=== PATIENT | female | born 1960 | race Asian ===

== ENCOUNTER 2019-01-08 17:10 | Inpatient (IN) | payer OTHER ==
[~2019-01-08] VITALS: Ht 147.3 cm; Wt 51.3 kg
[2019-01-08 17:29] VITALS: Ht 147.3 cm; Wt 51.3 kg
[2019-01-08 19:18] LABS: BASOPHIL % 1.4 % (0-2); PLATELET COUNT 352 x10^3mcL (130-400)
[2019-01-08 19:26] LABS: RED CELL DISTRIBUTION WIDTH 15.2 % (11.5-14.5)
[2019-01-08 19:28] LABS: ALBUMIN 3.9 g/dL (3.4-5.0); ALKALINE PHOSPHATASE 110 U/L (46-116); ALT/SGPT 198 U/L (14-59); AST/SGOT 65 U/L (15-37); BILIRUBIN TOTAL 0.9 mg/dL (0.20-1.00); CALCIUM 8.7 mg/dL (8.5-10.1); CHLORIDE SERUM 82 mmol/L (98-107); CREATININE SERUM 0.9 mg/dL (0.6-1.0); GFR1 > 60 mL/min; GLUCOSE SERUM 202 mg/dL (74-106); POTASSIUM SERUM 3.1 mmol/L (3.5-5.1); TOTAL PROTEIN, SERUM 8.2 g/dL (6.4-8.2)
[2019-01-08 19:31] LABS: SODIUM SERUM 118 mmol/L (136-145)
[2019-01-08 19:32] LABS: FREE T4 1.46 ng/dL (0.76-1.46)
[2019-01-08 19:35] LABS: T4(THYROXINE) 15.7 ug/dL (4.7-13.3)
[2019-01-08 19:46] LABS: T3 TOTAL 1.13 ng/mL
[2019-01-08 19:47] LABS: rbc morphology (normal/abnorm) ABNORMAL (NORMAL)
[2019-01-08 21:28] LABS: CALCIUM 8.5 mg/dL (8.5-10.1); CARBON DIOXIDE 30.9 mmol/L (21-32); CHLORIDE SERUM 84 mmol/L (98-107); CREATININE SERUM 0.8 mg/dL (0.6-1.0); GFR1 > 60 mL/min; GLUCOSE SERUM 138 mg/dL (74-106); POTASSIUM SERUM 3.1 mmol/L (3.5-5.1)
[2019-01-08 21:33] LABS: SODIUM SERUM 120 mmol/L (136-145)
[2019-01-08 23:40] VITALS: BP 160/93
[2019-01-09 01:13] LABS: CALCIUM 7.8 mg/dL (8.5-10.1); CARBON DIOXIDE 30.9 mmol/L (21-32); CHLORIDE SERUM 88 mmol/L (98-107); CREATININE SERUM 0.7 mg/dL (0.6-1.0); GFR1 > 60 mL/min; GLUCOSE SERUM 106 mg/dL (74-106); POTASSIUM SERUM 3.7 mmol/L (3.5-5.1)
[2019-01-09 01:43] LABS: SODIUM SERUM 122 mmol/L (136-145)
[2019-01-09] MEDS ORDERED: COZAAR50 M1 PO (04:20)
[2019-01-09] MEDS ORDERED: HYDROCHLOROTH12.5 M2 PO (04:20)
[2019-01-09 04:32] VITALS: BP 104/88
[2019-01-09 07:16] LABS: BASOPHIL % 0.1 % (0-2); PLATELET COUNT 360 x10^3mcL (130-400)
[2019-01-09 07:45] LABS: RED CELL DISTRIBUTION WIDTH 14.9 % (11.5-14.5); rbc morphology (normal/abnorm) ABNORMAL (NORMAL)
[2019-01-09 08:27] VITALS: BP 145/86
[2019-01-09 10:59] LABS: CARBON DIOXIDE 27.5 mmol/L (21-32); CHLORIDE SERUM 92 mmol/L (98-107); CREATININE SERUM 0.7 mg/dL (0.6-1.0); GFR1 > 60 mL/min; GLUCOSE SERUM 111 mg/dL (74-106); MAGNESIUM 1.9 mg/dL (1.8-2.4); PHOSPHOROUS 2.8 mg/dL (2.5-4.9); POTASSIUM SERUM 4.2 mmol/L (3.5-5.1); SODIUM SERUM 125 mmol/L (136-145)
[2019-01-09 12:10] VITALS: BP 144/86
[2019-01-09 16:17] VITALS: BP 150/93
[2019-01-09 21:34] VITALS: BP 155/90
[2019-01-09] MEDS ORDERED: ZOLOFT50 MG (21:37)
[2019-01-10 05:28] VITALS: BP 154/85
[2019-01-10 07:01] LABS: BASOPHIL % 0.2 % (0-2); PLATELET COUNT 316 x10^3mcL (130-400)
[2019-01-10 07:16] LABS: CALCIUM 7.9 mg/dL (8.5-10.1); CARBON DIOXIDE 25.1 mmol/L (21-32); CHLORIDE SERUM 92 mmol/L (98-107); CREATININE SERUM 0.5 mg/dL (0.6-1.0); GFR1 > 60 mL/min; GLUCOSE SERUM 113 mg/dL (74-106); MAGNESIUM 2.1 mg/dL (1.8-2.4); PHOSPHOROUS 2.3 mg/dL (2.5-4.9); POTASSIUM SERUM 3.6 mmol/L (3.5-5.1); RED CELL DISTRIBUTION WIDTH 15.4 % (11.5-14.5); SODIUM SERUM 125 mmol/L (136-145)
[2019-01-10 07:17] LABS: rbc morphology (normal/abnorm) ABNORMAL (NORMAL)
[2019-01-10 08:48] VITALS: BP 165/91
[2019-01-10 08:55] VITALS: BP 153/80
[2019-01-10 12:28] VITALS: BP 155/89
[2019-01-10 13:08] LABS: CALCIUM 7.8 mg/dL (8.5-10.1); CARBON DIOXIDE 26.7 mmol/L (21-32); CHLORIDE SERUM 93 mmol/L (98-107); CREATININE SERUM 0.6 mg/dL (0.6-1.0); GFR1 > 60 mL/min; GLUCOSE SERUM 104 mg/dL (74-106); POTASSIUM SERUM 4.3 mmol/L (3.5-5.1); SODIUM SERUM 128 mmol/L (136-145)
[2019-01-10 20:45] VITALS: BP 155/94
[2019-01-11 05:35] VITALS: BP 136/84
[2019-01-11 07:24] LABS: BASOPHIL % 0.8 % (0-2); PLATELET COUNT 364 x10^3mcL (130-400)
[2019-01-11 07:43] LABS: RED CELL DISTRIBUTION WIDTH 15.8 % (11.5-14.5)
[2019-01-11 07:45] LABS: CALCIUM 8.1 mg/dL (8.5-10.1); CARBON DIOXIDE 27.4 mmol/L (21-32); CHLORIDE SERUM 96 mmol/L (98-107); CREATININE SERUM 0.7 mg/dL (0.6-1.0); GFR1 > 60 mL/min; GLUCOSE SERUM 86 mg/dL (74-106); PHOSPHOROUS 2.2 mg/dL (2.5-4.9); POTASSIUM SERUM 4.3 mmol/L (3.5-5.1); SODIUM SERUM 133 mmol/L (136-145); rbc morphology (normal/abnorm) ABNORMAL (NORMAL)
[2019-01-11 09:08] VITALS: BP 136/94
[2019-01-11] MEDS ORDERED: NOR5 PO (10:18)
[2019-01-11 12:11] VITALS: BP 141/86
[2019-01-11 16:29] VITALS: BP 164/97
[2019-01-11 21:06] VITALS: BP 145/93
[2019-01-12 05:47] VITALS: BP 124/84
[2019-01-12 07:07] LABS: CALCIUM 8.3 mg/dL (8.5-10.1); CARBON DIOXIDE 27.2 mmol/L (21-32); CHLORIDE SERUM 98 mmol/L (98-107); CREATININE SERUM 0.6 mg/dL (0.6-1.0); GFR1 > 60 mL/min; GLUCOSE SERUM 111 mg/dL (74-106); MAGNESIUM 2.1 mg/dL (1.8-2.4); PHOSPHOROUS 2.8 mg/dL (2.5-4.9); POTASSIUM SERUM 3.7 mmol/L (3.5-5.1); SODIUM SERUM 133 mmol/L (136-145)
[2019-01-12 07:12] LABS: BASOPHIL % 0.3 % (0-2); PLATELET COUNT 393 x10^3mcL (130-400)
[2019-01-12 07:13] LABS: RED CELL DISTRIBUTION WIDTH 15.4 % (11.5-14.5)
[2019-01-12 09:23] VITALS: BP 151/90
[2019-01-12] MEDS ORDERED: TRA50 PO (10:43)
[2019-01-12 12:12] VITALS: BP 151/90
[2019-01-12 13:00] VITALS: BP 158/94
== END 2019-01-12 14:25 | disposition home or self-care (01) | DRG 426 ==
LOC: ED 17:10 → DU 20:50
PROVIDERS: Emergency Medicine; ADMIT Internal Medicine
DX: E87.1 Hypo-osmolality and hyponatremia (principal); G93.41 Metabolic encephalopathy; E87.6 Hypokalemia; D50.9 Iron deficiency anemia, unspecified; R73.03 Prediabetes; R74.0 Nonspecific elevation of levels of transaminase and lactic acid dehydrogenase [LDH]; G47.00 Insomnia, unspecified; F41.8 Other specified anxiety disorders; Z68.26 Body mass index [BMI] 26.0-26.9, adult; I10 Essential (primary) hypertension; T50.2X5A Adverse effect of carbonic-anhydrase inhibitors, benzothiadiazides and other diuretics, initial encounter; Y92.89 Other specified places as the place of occurrence of the external cause; F32.9 Major depressive disorder, single episode, unspecified; F41.9 Anxiety disorder, unspecified; Z83.3 Family history of diabetes mellitus; Z82.49 Family history of ischemic heart disease and other diseases of the circulatory system; D64.9 Anemia, unspecified; R73.9 Hyperglycemia, unspecified
CPT/HCPCS: 84439; 97116-GP; G0378; J2060; J3480; J7030; Q0092